=== PATIENT | male | born 1955 | race Caucasian/White ===

== ENCOUNTER 2016-12-29 11:48 | Inpatient (IN) | payer OTHER ==
[~2016-12-29] VITALS: Ht 170.2 cm; Wt 114.3 kg
[2016-12-29] MEDS ORDERED: IV NORMAL SALINE 500ML BAG 500 ML IV ONE ×2 (12:15→12:30)
[2016-12-29 12:40] LABS: BASO # 0.1 x10^3/uL (0.0-0.2); BASO % 1 % (0-3); CALCIUM 8.8 mg/dL (8.5-10.1); CREATININE 1.6 mg/dL (0.7-1.3); EOS % 5 % (0-3); GFR 44.2; HEMATOCRIT 37.6 % (39.0-53.0); HEMOGLOBIN 12.7 g/dL (13.0-17.5); LYMPH # 1.5 x10^3/uL (1.0-4.8); LYMPH % 23 % (24-48); MEAN CORPUSCULAR HEMOGLOBIN 29 pg (25-35); MEAN CORPUSCULAR HGB CONC 34 g/dL (31-37); MEAN CORPUSCULAR VOLUME 86 fL (79-100); MONO % 13 % (0-9); NEUT % 59 % (31-73); PLATELET COUNT 182 x10^3/uL (140-400); POTASSIUM 4.4 mmol/L (3.5-5.1); RED BLOOD COUNT 4.36 x10^6/uL (4.30-5.70); RED CELL DISTRIBUTION WIDTH 14.3 % (11.5-14.5); WHITE BLOOD COUNT 6.9 x10^3/uL (4.0-11.0)
[2016-12-29 12:45] LABS: ALBUMIN 3.6 g/dL (3.4-5.0); DIRECT BILIRUBIN 0.1 mg/dL (0.0-0.2); TOTAL BILIRUBIN 0.4 mg/dL (0.2-1.0); TOTAL PROTEIN 7.7 g/dL (6.4-8.2)
--- NOTE | 2016-12-29 13:11 | PHYS DOC ---
Past Medical History Past Medical History: CAD, GERD, Hypertension, [place] Past Surgical History: Other Additional Past Surgical Histo: cardiac stent times 3, L 1st finger surgically amputated Additional Information: "I haven't smoked since I've been in assisted." Alcohol Use: None Drug Use: None Adult General Chief Complaint Chief Complaint: diarhea HPI HPI 61-year-old male presenting to the emergency department today with abdominal pain with watery stools for the past week. He reports up to 5 stools a day. He denies bloody stools. He feels generally weak and lightheaded when he stands up. His pain as a cramping pain is nonfocal and without alleviating factors. His pain is nonradiating and mild. Review of systems is negative for chest pain shortness of breath fevers chills nausea or vomiting. All other review of systems is negative unless otherwise noted in history of present illness. Review of Systems Review of Systems SEE ABOVE. Current Medications Current Medications Current Medications Medications (Trade) Dose Ordered Sig/Ez Start Time Stop Time Status Last Admin Dose Admin Morphine Sulfate 2 mg PRN Q2HR PRN 12/29/16 14:30 12/30/16 14:29 Ondansetron HCl (Zofran) 4 mg PRN Q8HRS PRN 12/29/16 14:30 12/30/16 14:29 Sodium Chloride (Iv Sodium Chloride 0.9% 500ml Bag) 500 ml @ 500 mls/hr 1X ONCE 12/29/16 12:30 12/29/16 13:29 DC 12/29/16 12:30 500 MLS/HR Allergies Allergies Allergies Coded Allergies Type Severity Reaction Last Updated Verified No Known Drug Allergies 12/29/16 No Physical Exam Physical Exam Constitutional: Well developed, well nourished, no acute distress, non-toxic appearance. HENT: Normocephalic, atraumatic, bilateral external ears normal, oropharynx moist, no oral exudates, nose normal. [] Eyes: PERRLA, EOMI, conjunctiva normal, no discharge. Neck: Normal range of motion, no tenderness, supple, no stridor. [] Cardiovascular:Heart rate regular rhythm, no murmur Lungs & Thorax: Bilateral breath sounds clear to auscultation [] Abdomen: Soft nontender abdomen without rebound tenderness or guarding present. mildly distended. Negative McBurneys point. Negative Moya sign. No ecchymosis present. Mevag-sc-yaoa ultrasound of the abdomen shows approximately 2-1/2-3 cm aorta without any free fluid in the abdomen. Skin: Warm, dry, no erythema, no rash. [] Back: No tenderness, no CVA tenderness. Extremities: No tenderness, no cyanosis, no clubbing, ROM intact, no edema. Neurologic: Alert and oriented X 3, normal motor function, normal sensory function, no focal deficits noted. Psychologic: Affect normal, judgement normal, mood normal. [] Current Patient Data Vital Signs Vital Signs Date Time Temp Pulse Resp B/P Pulse Ox O2 Delivery O2 Flow Rate FiO2 12/29/16 15:02 49 12 123/80 97 Room Air 12/29/16 12:00 97.9 97.9 Lab Values Laboratory Tests Test 12/29/16 12:20 White Blood Count 6.9x10^3/uL (4.0-11.0) Red Blood Count 4.36x10^6/uL (4.30-5.70) Hemoglobin 12.7g/dL (13.0-17.5) L Hematocrit 37.6% (39.0-53.0) L Mean Corpuscular Volume 86fL (79-100) Mean Corpuscular Hemoglobin 29pg (25-35) Mean Corpuscular Hemoglobin Concent 34g/dL (31-37) Red Cell Distribution Width 14.3% (11.5-14.5) Platelet Count 182x10^3/uL (140-400) Neutrophils (%) (Auto) 59% (31-73) Lymphocytes (%) (Auto) 23% (24-48) L Monocytes (%) (Auto) 13% (0-9) H Eosinophils (%) (Auto) 5% (0-3) H Basophils (%) (Auto) 1% (0-3) Neutrophils # (Auto) 4.0x10^3uL (1.8-7.7) Lymphocytes # (Auto) 1.5x10^3/uL (1.0-4.8) Monocytes # (Auto) 0.9x10^3/uL (0.0-1.1) Eosinophils # (Auto) 0.3x10^3/uL (0.0-0.7) Basophils # (Auto) 0.1x10^3/uL (0.0-0.2) Sodium Level 137mmol/L (136-145) Potassium Level 4.4mmol/L (3.5-5.1) Chloride Level 103mmol/L (98-107) Carbon Dioxide Level 27mmol/L (21-32) Anion Gap 7 (6-14) Blood Urea Nitrogen 22mg/dL (8-26) Creatinine 1.6mg/dL (0.7-1.3) H Estimated GFR (Cockcroft-Gault) 44.2 Glucose Level 102mg/dL (70-99) H Lactic Acid Level 1.1mmol/L (0.4-2.0) Calcium Level 8.8mg/dL (8.5-10.1) Total Bilirubin 0.4mg/dL (0.2-1.0) Direct Bilirubin 0.1mg/dL (0.0-0.2) Aspartate Amino Transferase (AST) 28U/L (15-37) Alanine Aminotransferase (ALT) 35U/L (16-63) Alkaline Phosphatase 65U/L (46-116) Troponin I Quantitative < 0.017ng/mL (0.000-0.055) ES-Dkr-Z-Type Natriuretic Peptide 102pg/mL (0-124) Total Protein 7.7g/dL (6.4-8.2) Albumin 3.6g/dL (3.4-5.0) Lipase 106U/L (73-393) Laboratory Tests 12/29/16 12:20 Laboratory Tests 12/29/16 12:20 EKG EKG [] Radiology/Procedures Radiology/Procedures [] Course & Med Decision Making Course & Med Decision Making Pertinent Labs and Imaging studies reviewed. (See chart for details) [] 61-year-old male presenting to the emergency department with low blood pressure and watery diarrhea over the past week. On examination his vital signs showed him being afebrile. Pulse rate within normal limits. Blood pressure low with systolic around 90. Saturating well on room air. IV established in the ER and IV fluids administered. Blood work sent which showed a mild anemia chemistry panel showed mild elevation in creatinine with mild elevation in BUN. Lactic acid within normal limits. Lipase within normal limits. CT the abdomen and pelvis negative for acute pathology. Given the patient's blood pressure initially and continued abdominal pain the patient was admitted to our hospital for further evaluation workup and care. Dragon Disclaimer Dragon Disclaimer This electronic medical record was generated, in whole or in part, using a voice recognition dictation system. Departure Departure Impression: Primary Impression: Abdominal pain Additional Impressions: Hypotension Diarrhea Hypovolemia Disposition: ADMITTED INPATIENT Admitting Physician: Ryan Castellon Condition: STABLE Referrals: UNKNOWN PCP NAME (PCP) Problem Qualifiers LUIS HERNANDEZ MD Dec 29, 2016 13:11
--- NOTE | 2016-12-29 14:25 | EKG ---
[facility] [address] [place] [address] Test Date: 2016-12-29 Test Time: 13:44:58 Pat Name: REID WOO Department: Room: Gender: M Splitter Head: : 1955 Requested By: LUIS HERNANDEZ Order Number: [id number] Reading MD: Yu Goodman Measurements Intervals Mckenna Rate: 50 P: 42 VT: 176 QRS: -116 QRSD: 152 T: 33 QT: 500 QTc: 459 Interpretive Statements SINUS RHYTHM NON SPECIFIC INTRAVENTRICULAR BLOCK QRS(T) CONTOUR ABNORMALITY CONSISTENT WITH LATERAL INFARCT PROBABLY OLD CONSISTENT WITH INFERIOR INFARCT PROBABLY OLD ABNORMAL ECG RI6.01 Compared to ECG 03/10/2016 20:09:42 No significant changes Electronically Signed On 01-02-2017 20:18:33 [employer] by Yu Goodman
[2016-12-29] MEDS ORDERED: ONDANSETRON PF 4 MG/2 ML VIAL. IV PRN ×3 (14:30→18:30)
[2016-12-29] MEDS ORDERED: MORPHINE SULFATE 2 MG/ML DISP.SYRIN. IV PRN (14:30)
--- NOTE | 2016-12-29 14:31 | RAD ---
PQRS Compliance Statement: One or more of the following individualized dose reduction techniques were utilized for this examination: 1. Automated exposure control 2. Adjustment of the mA and/or kV according to patient size 3. Use of iterative reconstruction technique CT of the abdomen and pelvis without contrast, 12/29/2016: History: Abdominal pain Noncontrast scans were obtained as requested. There is mild bibasilar linear scarring and/or atelectasis. Several coronary artery calcifications are noted. There is a small hiatal hernia. The unopacified liver is unremarkable. Small gallstones are present in the gallbladder. There is no evidence of gallbladder wall thickening or pericholecystic edema. No pancreatic abnormality is detected. The spleen is of normal size. The kidneys show no evidence of obstruction or calculi. There is moderate aortoiliac calcific plaquing. There is slight fusiform dilatation of the infrarenal abdominal aorta which measures 3.1 cm in diameter. The right common iliac artery is enlarged measuring 3 cm in width. No abdominal or pelvic adenopathy is present. The bowel loops are not dilated. There is mild mural thickening involving the descending colon. No paracolonic inflammatory process is seen. The appendix is visualized and shows no abnormality. No free fluid or free air is evident in the abdomen or pelvis. There are moderate scattered hypertrophic degenerative changes in the spine. Several old lower rib fractures are noted bilaterally. IMPRESSION: 1. Cholelithiasis. 2. Mild mural thickening involving the descending colon suggesting nonspecific colitis. 3. Minimal fusiform dilatation of the infrarenal abdominal aorta. 4. 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 5. Small hiatal hernia.
[2016-12-29 15:45] LABS: BILIRUBIN,URINE NEGATIVE (NEG); GLUCOSE,URINE NEGATIVE (NEG); NITRITE,URINE NEGATIVE (NEG); PROTEIN,URINE NEGATIVE (NEG-TRACE); UROBILINOGEN,URINE 0.2 mg/dL (0.2 mg/dL)
[2016-12-29 15:47] LABS: BACTERIA,URINE 0 /HPF (0-FEW); RBC,URINE 0 /HPF (0-2); WBC,URINE 0 /HPF (0-4)
--- NOTE | 2016-12-29 15:56 | PDOC1 ---
History and Physical Current Problem List Problem List Problems Medical Problems: (1) Abdominal pain Status: Acute (2) Diarrhea Status: Acute (3) Hypotension Status: Acute (4) Hypovolemia Status: Acute Current Medications Current Medications Current Medications Medications (Trade) Dose Ordered Sig/Ez Start Time Stop Time Status Last Admin Dose Admin Morphine Sulfate 2 mg PRN Q2HR PRN 12/29/16 14:30 12/30/16 14:29 Ondansetron HCl (Zofran) 4 mg PRN Q8HRS PRN 12/29/16 14:30 12/30/16 14:29 Sodium Chloride (Iv Sodium Chloride 0.9% 500ml Bag) 500 ml @ 500 mls/hr 1X ONCE 12/29/16 12:30 12/29/16 13:29 DC 12/29/16 12:30 500 MLS/HR Allergies Allergies Allergies Coded Allergies Type Severity Reaction Last Updated Verified No Known Drug Allergies 12/29/16 No ROS Review of System CONSTITUTIONAL: No fever or chills EYES: No recent changes SKIN: No rash or itching CARDIOVASCULAR: No chest pain, syncope, palpitations, or edema RESPIRATORY: No SOB or cough GASTROINTESTINAL: No nausea, vomiting or abdominal pain NEUROLOGICAL: No headaches or weakness ENDOCRINE: No cold or heat intolerance GENITOURINARY: No urgency or frequency of urination MUSCULOSKELETAL: No back pain or joint pain LYMPHATICS: No enlarged lymph nodes PSYCHIATRIC: No anxiety or depression Physical Exam Physical Exam GEN.: No apparent distress. Alert and oriented. HEENT: Head is normocephalic, atraumatic NECK: Supple. LUNGS: Clear to auscultation. HEART: RRR, S1, S2 present. Peripheral pulses intact ABDOMEN: Soft, nontender. Positive bowel sounds. EXTREMITIES: Without any cyanosis. NEUROLOGIC: Normal speech, normal tone PSYCHIATRIC: Normal affect, normal mood. SKIN: No ulcerations Vitals Vitals Vital Signs Date Time Temp Pulse Resp B/P Pulse Ox O2 Delivery O2 Flow Rate FiO2 12/29/16 15:02 49 12 123/80 97 Room Air 12/29/16 12:00 97.9 97.9 Labs Labs Laboratory Tests Test 12/29/16 12:20 12/29/16 15:28 White Blood Count 6.9x10^3/uL (4.0-11.0) Red Blood Count 4.36x10^6/uL (4.30-5.70) Hemoglobin 12.7g/dL (13.0-17.5) Hematocrit 37.6% (39.0-53.0) Mean Corpuscular Volume 86fL (79-100) Mean Corpuscular Hemoglobin 29pg (25-35) Mean Corpuscular Hemoglobin Concent 34g/dL (31-37) Red Cell Distribution Width 14.3% (11.5-14.5) Platelet Count 182x10^3/uL (140-400) Neutrophils (%) (Auto) 59% (31-73) Lymphocytes (%) (Auto) 23% (24-48) Monocytes (%) (Auto) 13% (0-9) Eosinophils (%) (Auto) 5% (0-3) Basophils (%) (Auto) 1% (0-3) Neutrophils # (Auto) 4.0x10^3uL (1.8-7.7) Lymphocytes # (Auto) 1.5x10^3/uL (1.0-4.8) Monocytes # (Auto) 0.9x10^3/uL (0.0-1.1) Eosinophils # (Auto) 0.3x10^3/uL (0.0-0.7) Basophils # (Auto) 0.1x10^3/uL (0.0-0.2) Sodium Level 137mmol/L (136-145) Potassium Level 4.4mmol/L (3.5-5.1) Chloride Level 103mmol/L (98-107) Carbon Dioxide Level 27mmol/L (21-32) Anion Gap 7 (6-14) Blood Urea Nitrogen 22mg/dL (8-26) Creatinine 1.6mg/dL (0.7-1.3) Estimated GFR (Cockcroft-Gault) 44.2 Glucose Level 102mg/dL (70-99) Lactic Acid Level 1.1mmol/L (0.4-2.0) Calcium Level 8.8mg/dL (8.5-10.1) Total Bilirubin 0.4mg/dL (0.2-1.0) Direct Bilirubin 0.1mg/dL (0.0-0.2) Aspartate Amino Transf (AST/SGOT) 28U/L (15-37) Alanine Aminotransferase (ALT/SGPT) 35U/L (16-63) Alkaline Phosphatase 65U/L (46-116) Troponin I Quantitative < 0.017ng/mL (0.000-0.055) SQ-Xev-G-Type Natriuretic Peptide 102pg/mL (0-124) Total Protein 7.7g/dL (6.4-8.2) Albumin 3.6g/dL (3.4-5.0) Lipase 106U/L (73-393) Urine Collection Type Unknown Urine Color Yellow Urine Clarity Clear Urine pH 6.0 Urine Specific [place] 1.010 Urine Protein Negativemg/dL (NEG-TRACE) Urine Glucose (UA) Negativemg/dL (NEG) Urine Ketones (Stick) Negativemg/dL (NEG) Urine Blood Negative (NEG) Urine Nitrite Negative (NEG) Urine Bilirubin Negative (NEG) Urine Urobilinogen Dipstick 0.2mg/dL (0.2 mg/dL) Urine Leukocyte Esterase Negative (NEG) Urine RBC 0/HPF (0-2) Urine WBC 0/HPF (0-4) Urine Renal Epithelial Cells Occ/LPF Urine Bacteria 0/HPF (0-FEW) Urine Hyaline Casts Moderate/HPF Urine Mucus Slight/LPF Laboratory Tests Test 12/29/16 12:20 12/29/16 15:28 White Blood Count 6.9x10^3/uL (4.0-11.0) Red Blood Count 4.36x10^6/uL (4.30-5.70) Hemoglobin 12.7g/dL (13.0-17.5) Hematocrit 37.6% (39.0-53.0) Mean Corpuscular Volume 86fL (79-100) Mean Corpuscular Hemoglobin 29pg (25-35) Mean Corpuscular Hemoglobin Concent 34g/dL (31-37) Red Cell Distribution Width 14.3% (11.5-14.5) Platelet Count 182x10^3/uL (140-400) Neutrophils (%) (Auto) 59% (31-73) Lymphocytes (%) (Auto) 23% (24-48) Monocytes (%) (Auto) 13% (0-9) Eosinophils (%) (Auto) 5% (0-3) Basophils (%) (Auto) 1% (0-3) Neutrophils # (Auto) 4.0x10^3uL (1.8-7.7) Lymphocytes # (Auto) 1.5x10^3/uL (1.0-4.8) Monocytes # (Auto) 0.9x10^3/uL (0.0-1.1) Eosinophils # (Auto) 0.3x10^3/uL (0.0-0.7) Basophils # (Auto) 0.1x10^3/uL (0.0-0.2) Sodium Level 137mmol/L (136-145) Potassium Level 4.4mmol/L (3.5-5.1) Chloride Level 103mmol/L (98-107) Carbon Dioxide Level 27mmol/L (21-32) Anion Gap 7 (6-14) Blood Urea Nitrogen 22mg/dL (8-26) Creatinine 1.6mg/dL (0.7-1.3) Estimated GFR (Cockcroft-Gault) 44.2 Glucose Level 102mg/dL (70-99) Lactic Acid Level 1.1mmol/L (0.4-2.0) Calcium Level 8.8mg/dL (8.5-10.1) Total Bilirubin 0.4mg/dL (0.2-1.0) Direct Bilirubin 0.1mg/dL (0.0-0.2) Aspartate Amino Transf (AST/SGOT) 28U/L (15-37) Alanine Aminotransferase (ALT/SGPT) 35U/L (16-63) Alkaline Phosphatase 65U/L (46-116) Troponin I Quantitative < 0.017ng/mL (0.000-0.055) BS-Pvq-P-Type Natriuretic Peptide 102pg/mL (0-124) Total Protein 7.7g/dL (6.4-8.2) Albumin 3.6g/dL (3.4-5.0) Lipase 106U/L (73-393) Urine Collection Type Unknown Urine Color Yellow Urine Clarity Clear Urine pH 6.0 Urine Specific [place] 1.010 Urine Protein Negativemg/dL (NEG-TRACE) Urine Glucose (UA) Negativemg/dL (NEG) Urine Ketones (Stick) Negativemg/dL (NEG) Urine Blood Negative (NEG) Urine Nitrite Negative (NEG) Urine Bilirubin Negative (NEG) Urine Urobilinogen Dipstick 0.2mg/dL (0.2 mg/dL) Urine Leukocyte Esterase Negative (NEG) Urine RBC 0/HPF (0-2) Urine WBC 0/HPF (0-4) Urine Renal Epithelial Cells Occ/LPF Urine Bacteria 0/HPF (0-FEW) Urine Hyaline Casts Moderate/HPF Urine Mucus Slight/LPF SPENCER FERRELL MD Dec 29, 2016 15:56
[2016-12-29] MEDS ORDERED: IV NORMAL SALINE 1000ML BAG 1,000 ML IV SCH (16:00)
[2016-12-29 16:31] VITALS: BP 117/72
[2016-12-29] MEDS ORDERED: ALBUTEROL SULFATE 2.5 MG/3 ML NEBU. NEB PRN ×2 (18:30)
[2016-12-29] MEDS ORDERED: hydrALAZINE 20 MG/ML VIAL. IVP PRN (18:30)
[2016-12-29] MEDS ORDERED: ACETAMINOPHEN 325 MG TABLET. PO PRN ×2 (18:30)
[2016-12-29] MEDS ORDERED: HYDROCODONE/APAP 5/325MG TABLET. PO PRN ×2 (18:30)
[2016-12-29] MEDS: IV NORMAL SALINE 1000ML BAG 1,000 ML IV SCH (18:30)
[2016-12-29 19:00] VITALS: BP 117/81
--- NOTE | 2016-12-29 22:44 | HP ---
ADMIT DATE: 12/29/2016 CHIEF COMPLAINT: ____, diarrhea. HISTORY OF PRESENT ILLNESS: A 61-year-old male patient presented to the ER with complaints of abdominal pain and watery diarrhea for nearly 1 week. The patient reported nearly 3-6 bowel movements, watery in nature, present consistent every day. Denies any fevers, chills or vomiting; however, this morning, he was complains of some nausea. Denies any decreased oral intake. Denies any prior surgeries or abdominal complications. He was seen by a physician at the facility and at that time, his blood pressure very low. The patient was in orthostatic hypotension. At the time of his arrival to the ER, his hypotension was severe ____ he is heavy hydration. PAST MEDICAL HISTORY: Coronary artery disease, GERD, hypertension and CO. PAST SURGICAL HISTORY: Coronary stents placed. PERSONAL HISTORY: No smoking, no alcohol, no drug abuse. FAMILY HISTORY: No gastric cancers. REVIEW OF SYSTEMS: CONSTITUTIONAL: No fever or chills. EYES: No recent vision changes. SKIN: No rash or itching. CARDIOVASCULAR: No chest pain, syncope, palpitations or edema. RESPIRATORY: No shortness of breath, cough. GASTROINTESTINAL: Nausea, abdominal pain and diarrhea. NEUROLOGICAL: No headache, paralysis. ENDOCRINOLOGIC: No cold or heat intolerance. GENITOURINARY: No burning with urination, no urgency. MUSCULOSKELETAL: No back pain or joint pain. LYMPHATICS: No enlarged nodes. PSYCHIATRIC: No anxiety or depression. PHYSICAL EXAMINATION: VITAL SIGNS: At the time of my examination, temperature is 97.9, blood pressure is 123/80, pulse 49, respiratory rate 12, pulse ox 97% on room air. CONSTITUTIONAL: Well developed, well nourished, obese. HEENT: Normocephalic, atraumatic. Eyes: PERRLA, EOMI. NECK: No JVD, no thyromegaly. LUNGS: Clear to auscultation. HEART: Regular rate and rhythm; S1, S2 present; pulses intact. ABDOMEN: Soft, nontender, no organomegaly, mildly distended. EXTREMITIES: No cyanosis or edema. NEUROLOGIC: Normal speech and normal tone; alert and oriented. PSYCHIATRIC: Normal affect, normal mood. SKIN: No ulceration. IMAGING STUDIES: 1. CT of the abdomen and pelvis showed cholelithiasis, mild mural thickening involving the descending colon suggesting nonspecific colitis. 2. Minimal fusiform dilatation of infrarenal abdominal aorta. 3. 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 4. Small hiatal hernia. LABORATORY FINDINGS: WBC 6.9, hemoglobin 12.7, platelets 182. Chemistries: Sodium 137, potassium 4.4, chloride is 103, carbon dioxide 27, anion gap is 7, BUN is 22, creatinine is 1.6, glucose 107. Troponin is less than 0.017. Urine protein is negative, nitrites negative, leuko esterase negative. ASSESSMENT AND PLAN: 1. Diarrhea, possibly due to a nonspecific colitis. 2. Acute kidney injury due to dehydration. 3. Hypertension. 4. Coronary artery disease history. 5. Gastroesophageal reflux disease. PLAN: 1. Keep the patient n.p.o., IV hydration at 75 mL per hour. 2. Monitor intake and output. 3. The patient continued to have persistent diarrhea. We will order stool studies. 4. Gastroenterology consultation. 5. Home medications reviewed and counseled. 6. Monitor renal functions in a.m. 7. Pain control with IV morphine. 8. Supportive care. SPENCER FERRELL MD DR: MISTY/timothy JOB#: [id number] / [id number]
--- NOTE | 2016-12-29 22:47 | ACF ---
Admission Forms Criteria ABDOMINAL PAIN Clinical Indications for Admission to Inpatient Care (Place 'X' for any and all applicable criteria): Admission is indicated for ANY ONE of the following(1)(2)(3)(4)(5): [X]I. Inpatient admission required rather than observation care (Also use Abdominal Pain: Observation Care, as appropriate) because of ANY ONE of the following: [ ]a) Severe pain requiring acute inpatient management [X]b) Identification of etiology/finding that requires inpatient care (eg, aortic dissection, free air) [ ]c) Absent bowel sounds with complete ileus(6) [ ]d) Suspected toxic megacolon [ ]e) Severe electrolyte abnormalities requiring inpatient care [ ]f) High fever or infection requiring inpatient admission as indicated by ANY ONE of following(7)(8): [ ] i) Appropriate outpatient or observational care antimicrobial treatment unavailable, not effective, or not feasible [ ] ii) Documented bacteremia [ ] iii) Temperature > 104.9 degrees F (oral) [ ] iv) T >103.1 F (oral) or < 96.8 F(rectal) that does not respond to all emergency treatment measures [ ]g) Signs of intestinal obstruction [B] [ ]h) Hemodynamic instability [ ]i) IV fluid to replace significant ongoing losses (greater than 3 L/m2 per day) (12)(13) [ ]j) Percutaneous or open drainage (eg, abscess, biliary tract ) procedures [ ]k) Parenteral nutrition regimen that must be implemented on inpatient basis [ ]l) Other condition,treatment or monitoring requiring inpatient admission. [ ]II. Peritoneal signs present [ ]III. Surgery needed that cannot be performed on an ambulatory basis. [ ]IV. Evaluation requires patient to not eat or drink for extended period ( eg, more than 24 hours). [ ]V. Contraindications and/or Inappropriate clinical situations for Observational Care in patients with abdominal pain, when ANY ONE of the following is required: [ ]a) Thorough evaluation is required to prevent catastrophic events due to delays in diagnosing (e.g.Mesenteric ischemia) 1,3 [ ]b) Patient with severe pathology or with chronic symptoms unlikely to improve in the ED stay (3) [ ]. General contraindications and/or Inappropriate clinical situations for Observational Care in patients with abdominal pain, when ANY ONE of the following is required: [ ]a) Prediction of prolongation of LOS based on ANY ONE of the following may be considered as a contraindication for observational care 2, 3, 4, 5, 6, 7, 8, 9, 10, 11 [ ]i) Age > 65 yrs. [ ]ii) Patient arriving by ambulance [ ]iii) Patient with high acuity [ ]iv) Patient requiring vital sign monitoring [ ]v) Patient on IV medication [ ]b) Systolic blood pressures 180mmHg 3,12 [ ]c) Patient with altered mental status including delirium and other alteration of consciousness, (3) [ ]d) Patient whose discharge disposition will be to a alf home or rehabilitation home should not be managed in Emergency Department Observation Unit. CMS rule requires 3 days hospital stay before such placement.3,13 [ ]e) Patient with failure to thrive due to broad array of etiologies 3,16,17 [ ]f) Inability to ambulate 3,14 Extended stay beyond goal length of stay may be needed for(2)(3): [ ]a) Persistent abdominal pain with suspected intra-abdominal process [ ]b) Diagnosed condition requiring continued stay (e.g., pancreatitis, complicated diverticulitis) [ ]c) Surgery (e.g., colectomy) The original [facility] content created by [employer] has been revised. The portions of the content which have been revised are identified through the use of italic text or in bold, and [facility] has neither reviewed nor approved the modified material.All other unmodified content is copyright [employer]. Please see references footnoted in the original [facility] edition 2016 Admission Criteria Met?: Yes JODIE LAI Dec 29, 2016 22:47
[2016-12-29 23:00] VITALS: BP 144/87
[2016-12-30 03:00] VITALS: BP 137/85
[2016-12-30 05:02] LABS: BASO # 0.1 x10^3/uL (0.0-0.2); BASO % 1 % (0-3); EOS % 4 % (0-3); HEMATOCRIT 38.6 % (39.0-53.0); HEMOGLOBIN 12.4 g/dL (13.0-17.5); LYMPH # 1.7 x10^3/uL (1.0-4.8); LYMPH % 25 % (24-48); MEAN CORPUSCULAR HEMOGLOBIN 28 pg (25-35); MEAN CORPUSCULAR HGB CONC 32 g/dL (31-37); MEAN CORPUSCULAR VOLUME 89 fL (79-100); MONO % 11 % (0-9); NEUT % 59 % (31-73); PLATELET COUNT 162 x10^3/uL (140-400); RED BLOOD COUNT 4.36 x10^6/uL (4.30-5.70); WHITE BLOOD COUNT 6.8 x10^3/uL (4.0-11.0)
[2016-12-30 05:40] LABS: CALCIUM 8.7 mg/dL (8.5-10.1); CREATININE 1.2 mg/dL (0.7-1.3); GFR 61.6; POTASSIUM 4.4 mmol/L (3.5-5.1)
[2016-12-30] MEDS: IV NORMAL SALINE 1000ML BAG 1,000 ML IV SCH ×2 (06:00→19:51)
[2016-12-30 07:09] VITALS: BP 150/92
--- NOTE | 2016-12-30 09:18 | PDOC2 ---
GI CONSULT Reason For Consult: colitis HPI: HPI: 61 y/o incarcerated male admitted through the ER. Reports 1 week h/o periumbilical and LLQ pain w/ 7-8 watery stools daily. No precipitating events. Symptoms have improved a bit since taking Imodium and Pepto-Bismol. Some associated nausea w/o vomiting. Denies hematochezia/melena. No F/C/S or weight loss. H/o reflux improved but not controlled w/ Prilosec BID. Occasional regurgitation. No previous EGD, father had esophageal cancer. No previous colonoscopy. Wants some water. Labs: WBC 6.8, Hgb 12.4. CT w/ cholelithiasis, hiatal hernia, and mural thickening in the descending colon. Has been NPO. Stool studies ordered, uncollected. PMH: PMH: CAD s/p cardiac stents, HTN, ID, GERD, COPD, TAY, hypothyroidism, anxiety/ depression, previous STDs, Lasik, finger amputation FH: Family History: Cancer (father - esophageal cancer) Social History: Smoke: Quit ALCOHOL: other (used to drink but not heavily) Drugs: Other (in the past) ROS: GEN: Denies fevers, chills, sweats HEENT: Denies blurred vision, sore throat CV: Denies chest pain RESP: Denies shortness of air, cough GI: Per HPI : Denies hematuria, dysuria ENDO: Denies weight changes NEURO: Denies confusion, dizziness MSK: Denies weakness, joint pain/swelling SKIN: Denies jaundice, pruritus VItals: Vitals: Vital Signs Date Time Temp Pulse Resp B/P Pulse Ox O2 Delivery O2 Flow Rate FiO2 12/30/16 07:09 97.9 61 16 150/92 94 Room Air 97.9 Labs: Labs: Laboratory Tests Test 12/29/16 12:20 12/29/16 15:28 12/29/16 17:15 12/30/16 04:33 White Blood Count 6.9x10^3/uL (4.0-11.0) 6.8x10^3/uL (4.0-11.0) Red Blood Count 4.36x10^6/uL (4.30-5.70) 4.36x10^6/uL (4.30-5.70) Hemoglobin 12.7g/dL (13.0-17.5) 12.4g/dL (13.0-17.5) Hematocrit 37.6% (39.0-53.0) 38.6% (39.0-53.0) Mean Corpuscular Volume 86fL (79-100) 89fL (79-100) Mean Corpuscular Hemoglobin 29pg (25-35) 28pg (25-35) Mean Corpuscular Hemoglobin Concent 34g/dL (31-37) 32g/dL (31-37) Red Cell Distribution Width 14.3% (11.5-14.5) 14.0% (11.5-14.5) Platelet Count 182x10^3/uL (140-400) 162x10^3/uL (140-400) Neutrophils (%) (Auto) 59% (31-73) 59% (31-73) Lymphocytes (%) (Auto) 23% (24-48) 25% (24-48) Monocytes (%) (Auto) 13% (0-9) 11% (0-9) Eosinophils (%) (Auto) 5% (0-3) 4% (0-3) Basophils (%) (Auto) 1% (0-3) 1% (0-3) Neutrophils # (Auto) 4.0x10^3uL (1.8-7.7) 4.0x10^3uL (1.8-7.7) Lymphocytes # (Auto) 1.5x10^3/uL (1.0-4.8) 1.7x10^3/uL (1.0-4.8) Monocytes # (Auto) 0.9x10^3/uL (0.0-1.1) 0.7x10^3/uL (0.0-1.1) Eosinophils # (Auto) 0.3x10^3/uL (0.0-0.7) 0.3x10^3/uL (0.0-0.7) Basophils # (Auto) 0.1x10^3/uL (0.0-0.2) 0.1x10^3/uL (0.0-0.2) Sodium Level 137mmol/L (136-145) Potassium Level 4.4mmol/L (3.5-5.1) Chloride Level 103mmol/L (98-107) Carbon Dioxide Level 27mmol/L (21-32) Anion Gap 7 (6-14) Blood Urea Nitrogen 22mg/dL (8-26) Creatinine 1.6mg/dL (0.7-1.3) Estimated GFR (Cockcroft-Gault) 44.2 Glucose Level 102mg/dL (70-99) Lactic Acid Level 1.1mmol/L (0.4-2.0) Calcium Level 8.8mg/dL (8.5-10.1) Total Bilirubin 0.4mg/dL (0.2-1.0) Direct Bilirubin 0.1mg/dL (0.0-0.2) Aspartate Amino Transf (AST/SGOT) 28U/L (15-37) Alanine Aminotransferase (ALT/SGPT) 35U/L (16-63) Alkaline Phosphatase 65U/L (46-116) Troponin I Quantitative < 0.017ng/mL (0.000-0.055) DP-Qqr-P-Type Natriuretic Peptide 102pg/mL (0-124) Total Protein 7.7g/dL (6.4-8.2) Albumin 3.6g/dL (3.4-5.0) Lipase 106U/L (73-393) Urine Collection Type Unknown Urine Color Yellow Urine Clarity Clear Urine pH 6.0 Urine Specific [place] 1.010 Urine Protein Negativemg/dL (NEG-TRACE) Urine Glucose (UA) Negativemg/dL (NEG) Urine Ketones (Stick) Negativemg/dL (NEG) Urine Blood Negative (NEG) Urine Nitrite Negative (NEG) Urine Bilirubin Negative (NEG) Urine Urobilinogen Dipstick 0.2mg/dL (0.2 mg/dL) Urine Leukocyte Esterase Negative (NEG) Urine RBC 0/HPF (0-2) Urine WBC 0/HPF (0-4) Urine Renal Epithelial Cells Occ/LPF Urine Bacteria 0/HPF (0-FEW) Urine Hyaline Casts Moderate/HPF Urine Mucus Slight/LPF Nasal Screen MRSA (PCR) Negative (Negative) Test 12/30/16 04:37 Sodium Level 142mmol/L (136-145) Potassium Level 4.4mmol/L (3.5-5.1) Chloride Level 107mmol/L (98-107) Carbon Dioxide Level 27mmol/L (21-32) Anion Gap 8 (6-14) Blood Urea Nitrogen 17mg/dL (8-26) Creatinine 1.2mg/dL (0.7-1.3) Estimated GFR (Cockcroft-Gault) 61.6 Glucose Level 83mg/dL (70-99) Calcium Level 8.7mg/dL (8.5-10.1) Allergies: Coded Allergies: No Known Allergies (Verified Allergy, Unknown, 12/30/16) I S O L A T I O N *CONTACT* (Verified Adverse Reaction, Unknown, 12/29/16) Medications: Current Medications Medications (Trade) Dose Ordered Sig/Ez Route PRN Reason Start Time Stop Time Status Last Admin Dose Admin Sodium Chloride 500 ml @ 500 mls/hr 1X ONCE IV 12/29/16 12:15 12/29/16 13:14 DC 12/29/16 12:34 Sodium Chloride 500 ml @ 500 mls/hr 1X ONCE IV 12/29/16 12:30 12/29/16 13:29 DC 12/29/16 12:30 Sodium Chloride 1,000 ml @ 75 mls/hr [id number] IV 12/29/16 16:00 12/29/16 20:42 DC 12/29/16 17:17 Sodium Chloride (Iv Sodium Chloride 0.9% 1000ml Bag) 1,000 ml @ 75 mls/hr [id number] IV 12/29/16 18:30 12/30/16 06:00 Imaging: Imaging: CT A/P w/o contrast IMPRESSION: 1. Cholelithiasis. 2. Mild mural thickening involving the descending colon suggesting nonspecific colitis. 3. Minimal fusiform dilatation of the infrarenal abdominal aorta. 4. 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 5. Small hiatal hernia. PE: GEN: NAD HEENT: Atraumatic, PERRL LUNGS: CTAB anteriorly HEART: RRR ABD: NABS, S/ND, LLQ tenderness EXTREMITY: No edema SKIN: No rashes, no jaundice NEURO/PSYCH: A & O 3 OTHER: guards present A/P: A/P: Abdominal pain, diarrhea, nausea, abnormal CT -1 week of watery stools w/ LLQ pain -CT w/ thickened descending colon (additional CT finding per primary) GERD, FH esophageal cancer -improved w/ BID PPI, no previous EGD -occasional regurg CRC screen -no previous colonoscopy -- Await stool studies. Will restart BID PPI. Empiric atbx. Okay for clears. Needs EGD and colonoscopy eventually. ALAV SHAFFER Dec 30, 2016 09:18
--- NOTE | 2016-12-30 09:45 | PDOC ---
PROGRESS NOTES Chief Complaint Chief Complaint diarrhea, abdominal pain 1. colitis, non specific, treated as infectious on admit 2. acute abd pain, LLQ, improving 3. Acute renal failure, vasomotor nephropathy, dehydration, better 4. obesity, BMI 39 5. incarcerated History of Present Illness History of Present Illness feels improved stools have slowed LLQ abd pain persists no n.v would like to try clears Vitals Vitals Vital Signs Date Time Temp Pulse Resp B/P Pulse Ox O2 Delivery O2 Flow Rate FiO2 12/30/16 07:09 97.9 61 16 150/92 94 Room Air 97.9 Physical Exam General: Alert, Oriented X3, Cooperative, No acute distress Heart: Regular rate, No murmurs Lungs: Clear Abdomen: Normal bowel sounds, Soft, Other (tender LLQ, no rebound, no guarding , ) Extremities: No clubbing, No cyanosis Skin: No rashes, No significant lesion Labs LABS Laboratory Tests Test 12/29/16 12:20 12/29/16 15:28 12/29/16 17:15 12/30/16 04:33 White Blood Count 6.9x10^3/uL (4.0-11.0) 6.8x10^3/uL (4.0-11.0) Red Blood Count 4.36x10^6/uL (4.30-5.70) 4.36x10^6/uL (4.30-5.70) Hemoglobin 12.7g/dL (13.0-17.5) 12.4g/dL (13.0-17.5) Hematocrit 37.6% (39.0-53.0) 38.6% (39.0-53.0) Mean Corpuscular Volume 86fL (79-100) 89fL (79-100) Mean Corpuscular Hemoglobin 29pg (25-35) 28pg (25-35) Mean Corpuscular Hemoglobin Concent 34g/dL (31-37) 32g/dL (31-37) Red Cell Distribution Width 14.3% (11.5-14.5) 14.0% (11.5-14.5) Platelet Count 182x10^3/uL (140-400) 162x10^3/uL (140-400) Neutrophils (%) (Auto) 59% (31-73) 59% (31-73) Lymphocytes (%) (Auto) 23% (24-48) 25% (24-48) Monocytes (%) (Auto) 13% (0-9) 11% (0-9) Eosinophils (%) (Auto) 5% (0-3) 4% (0-3) Basophils (%) (Auto) 1% (0-3) 1% (0-3) Neutrophils # (Auto) 4.0x10^3uL (1.8-7.7) 4.0x10^3uL (1.8-7.7) Lymphocytes # (Auto) 1.5x10^3/uL (1.0-4.8) 1.7x10^3/uL (1.0-4.8) Monocytes # (Auto) 0.9x10^3/uL (0.0-1.1) 0.7x10^3/uL (0.0-1.1) Eosinophils # (Auto) 0.3x10^3/uL (0.0-0.7) 0.3x10^3/uL (0.0-0.7) Basophils # (Auto) 0.1x10^3/uL (0.0-0.2) 0.1x10^3/uL (0.0-0.2) Sodium Level 137mmol/L (136-145) Potassium Level 4.4mmol/L (3.5-5.1) Chloride Level 103mmol/L (98-107) Carbon Dioxide Level 27mmol/L (21-32) Anion Gap 7 (6-14) Blood Urea Nitrogen 22mg/dL (8-26) Creatinine 1.6mg/dL (0.7-1.3) Estimated GFR (Cockcroft-Gault) 44.2 Glucose Level 102mg/dL (70-99) Lactic Acid Level 1.1mmol/L (0.4-2.0) Calcium Level 8.8mg/dL (8.5-10.1) Total Bilirubin 0.4mg/dL (0.2-1.0) Direct Bilirubin 0.1mg/dL (0.0-0.2) Aspartate Amino Transf (AST/SGOT) 28U/L (15-37) Alanine Aminotransferase (ALT/SGPT) 35U/L (16-63) Alkaline Phosphatase 65U/L (46-116) Troponin I Quantitative < 0.017ng/mL (0.000-0.055) YJ-[id number]-F-Type Natriuretic Peptide 102pg/mL (0-124) Total Protein 7.7g/dL (6.4-8.2) Albumin 3.6g/dL (3.4-5.0) Lipase 106U/L (73-393) Urine Collection Type Unknown Urine Color Yellow Urine Clarity Clear Urine pH 6.0 Urine Specific [place] 1.010 Urine Protein Negativemg/dL (NEG-TRACE) Urine Glucose (UA) Negativemg/dL (NEG) Urine Ketones (Stick) Negativemg/dL (NEG) Urine Blood Negative (NEG) Urine Nitrite Negative (NEG) Urine Bilirubin Negative (NEG) Urine Urobilinogen Dipstick 0.2mg/dL (0.2 mg/dL) Urine Leukocyte Esterase Negative (NEG) Urine RBC 0/HPF (0-2) Urine WBC 0/HPF (0-4) Urine Renal Epithelial Cells Occ/LPF Urine Bacteria 0/HPF (0-FEW) Urine Hyaline Casts Moderate/HPF Urine Mucus Slight/LPF Nasal Screen MRSA (PCR) Negative (Negative) Test 12/30/16 04:37 Sodium Level 142mmol/L (136-145) Potassium Level 4.4mmol/L (3.5-5.1) Chloride Level 107mmol/L (98-107) Carbon Dioxide Level 27mmol/L (21-32) Anion Gap 8 (6-14) Blood Urea Nitrogen 17mg/dL (8-26) Creatinine 1.2mg/dL (0.7-1.3) Estimated GFR (Cockcroft-Gault) 61.6 Glucose Level 83mg/dL (70-99) Calcium Level 8.7mg/dL (8.5-10.1) Review of Systems Review of Systems no n,v diarrhea last night, none this AM Assessment and Plan Assessmemt and Plan Problems Medical Problems: (1) Abdominal pain Status: Acute (2) Diarrhea Status: Acute (3) Hypotension Status: Acute (4) Hypovolemia Status: Acute Problems: Comment Review of Relevant I have reviewed the following items sergey (where applicable) has been applied. Labs Laboratory Tests Test 12/29/16 12:20 12/29/16 15:28 12/29/16 17:15 12/30/16 04:33 White Blood Count 6.9x10^3/uL (4.0-11.0) 6.8x10^3/uL (4.0-11.0) Red Blood Count 4.36x10^6/uL (4.30-5.70) 4.36x10^6/uL (4.30-5.70) Hemoglobin 12.7g/dL (13.0-17.5) 12.4g/dL (13.0-17.5) Hematocrit 37.6% (39.0-53.0) 38.6% (39.0-53.0) Mean Corpuscular Volume 86fL (79-100) 89fL (79-100) Mean Corpuscular Hemoglobin 29pg (25-35) 28pg (25-35) Mean Corpuscular Hemoglobin Concent 34g/dL (31-37) 32g/dL (31-37) Red Cell Distribution Width 14.3% (11.5-14.5) 14.0% (11.5-14.5) Platelet Count 182x10^3/uL (140-400) 162x10^3/uL (140-400) Neutrophils (%) (Auto) 59% (31-73) 59% (31-73) Lymphocytes (%) (Auto) 23% (24-48) 25% (24-48) Monocytes (%) (Auto) 13% (0-9) 11% (0-9) Eosinophils (%) (Auto) 5% (0-3) 4% (0-3) Basophils (%) (Auto) 1% (0-3) 1% (0-3) Neutrophils # (Auto) 4.0x10^3uL (1.8-7.7) 4.0x10^3uL (1.8-7.7) Lymphocytes # (Auto) 1.5x10^3/uL (1.0-4.8) 1.7x10^3/uL (1.0-4.8) Monocytes # (Auto) 0.9x10^3/uL (0.0-1.1) 0.7x10^3/uL (0.0-1.1) Eosinophils # (Auto) 0.3x10^3/uL (0.0-0.7) 0.3x10^3/uL (0.0-0.7) Basophils # (Auto) 0.1x10^3/uL (0.0-0.2) 0.1x10^3/uL (0.0-0.2) Sodium Level 137mmol/L (136-145) Potassium Level 4.4mmol/L (3.5-5.1) Chloride Level 103mmol/L (98-107) Carbon Dioxide Level 27mmol/L (21-32) Anion Gap 7 (6-14) Blood Urea Nitrogen 22mg/dL (8-26) Creatinine 1.6mg/dL (0.7-1.3) Estimated GFR (Cockcroft-Gault) 44.2 Glucose Level 102mg/dL (70-99) Lactic Acid Level 1.1mmol/L (0.4-2.0) Calcium Level 8.8mg/dL (8.5-10.1) Total Bilirubin 0.4mg/dL (0.2-1.0) Direct Bilirubin 0.1mg/dL (0.0-0.2) Aspartate Amino Transf (AST/SGOT) 28U/L (15-37) Alanine Aminotransferase (ALT/SGPT) 35U/L (16-63) Alkaline Phosphatase 65U/L (46-116) Troponin I Quantitative < 0.017ng/mL (0.000-0.055) CK-Fhe-M-Type Natriuretic Peptide 102pg/mL (0-124) Total Protein 7.7g/dL (6.4-8.2) Albumin 3.6g/dL (3.4-5.0) Lipase 106U/L (73-393) Urine Collection Type Unknown Urine Color Yellow Urine Clarity Clear Urine pH 6.0 Urine Specific [place] 1.010 Urine Protein Negativemg/dL (NEG-TRACE) Urine Glucose (UA) Negativemg/dL (NEG) Urine Ketones (Stick) Negativemg/dL (NEG) Urine Blood Negative (NEG) Urine Nitrite Negative (NEG) Urine Bilirubin Negative (NEG) Urine Urobilinogen Dipstick 0.2mg/dL (0.2 mg/dL) Urine Leukocyte Esterase Negative (NEG) Urine RBC 0/HPF (0-2) Urine WBC 0/HPF (0-4) Urine Renal Epithelial Cells Occ/LPF Urine Bacteria 0/HPF (0-FEW) Urine Hyaline Casts Moderate/HPF Urine Mucus Slight/LPF Nasal Screen MRSA (PCR) Negative (Negative) Test 12/30/16 04:37 Sodium Level 142mmol/L (136-145) Potassium Level 4.4mmol/L (3.5-5.1) Chloride Level 107mmol/L (98-107) Carbon Dioxide Level 27mmol/L (21-32) Anion Gap 8 (6-14) Blood Urea Nitrogen 17mg/dL (8-26) Creatinine 1.2mg/dL (0.7-1.3) Estimated GFR (Cockcroft-Gault) 61.6 Glucose Level 83mg/dL (70-99) Calcium Level 8.7mg/dL (8.5-10.1) Laboratory Tests Test 12/29/16 12:20 12/29/16 15:28 12/29/16 17:15 12/30/16 04:33 White Blood Count 6.9x10^3/uL (4.0-11.0) 6.8x10^3/uL (4.0-11.0) Red Blood Count 4.36x10^6/uL (4.30-5.70) 4.36x10^6/uL (4.30-5.70) Hemoglobin 12.7g/dL (13.0-17.5) 12.4g/dL (13.0-17.5) Hematocrit 37.6% (39.0-53.0) 38.6% (39.0-53.0) Mean Corpuscular Volume 86fL (79-100) 89fL (79-100) Mean Corpuscular Hemoglobin 29pg (25-35) 28pg (25-35) Mean Corpuscular Hemoglobin Concent 34g/dL (31-37) 32g/dL (31-37) Red Cell Distribution Width 14.3% (11.5-14.5) 14.0% (11.5-14.5) Platelet Count 182x10^3/uL (140-400) 162x10^3/uL (140-400) Neutrophils (%) (Auto) 59% (31-73) 59% (31-73) Lymphocytes (%) (Auto) 23% (24-48) 25% (24-48) Monocytes (%) (Auto) 13% (0-9) 11% (0-9) Eosinophils (%) (Auto) 5% (0-3) 4% (0-3) Basophils (%) (Auto) 1% (0-3) 1% (0-3) Neutrophils # (Auto) 4.0x10^3uL (1.8-7.7) 4.0x10^3uL (1.8-7.7) Lymphocytes # (Auto) 1.5x10^3/uL (1.0-4.8) 1.7x10^3/uL (1.0-4.8) Monocytes # (Auto) 0.9x10^3/uL (0.0-1.1) 0.7x10^3/uL (0.0-1.1) Eosinophils # (Auto) 0.3x10^3/uL (0.0-0.7) 0.3x10^3/uL (0.0-0.7) Basophils # (Auto) 0.1x10^3/uL (0.0-0.2) 0.1x10^3/uL (0.0-0.2) Sodium Level 137mmol/L (136-145) Potassium Level 4.4mmol/L (3.5-5.1) Chloride Level 103mmol/L (98-107) Carbon Dioxide Level 27mmol/L (21-32) Anion Gap 7 (6-14) Blood Urea Nitrogen 22mg/dL (8-26) Creatinine 1.6mg/dL (0.7-1.3) Estimated GFR (Cockcroft-Gault) 44.2 Glucose Level 102mg/dL (70-99) Lactic Acid Level 1.1mmol/L (0.4-2.0) Calcium Level 8.8mg/dL (8.5-10.1) Total Bilirubin 0.4mg/dL (0.2-1.0) Direct Bilirubin 0.1mg/dL (0.0-0.2) Aspartate Amino Transf (AST/SGOT) 28U/L (15-37) Alanine Aminotransferase (ALT/SGPT) 35U/L (16-63) Alkaline Phosphatase 65U/L (46-116) Troponin I Quantitative < 0.017ng/mL (0.000-0.055) VE-Txg-B-Type Natriuretic Peptide 102pg/mL (0-124) Total Protein 7.7g/dL (6.4-8.2) Albumin 3.6g/dL (3.4-5.0) Lipase 106U/L (73-393) Urine Collection Type Unknown Urine Color Yellow Urine Clarity Clear Urine pH 6.0 Urine Specific [place] 1.010 Urine Protein Negativemg/dL (NEG-TRACE) Urine Glucose (UA) Negativemg/dL (NEG) Urine Ketones (Stick) Negativemg/dL (NEG) Urine Blood Negative (NEG) Urine Nitrite Negative (NEG) Urine Bilirubin Negative (NEG) Urine Urobilinogen Dipstick 0.2mg/dL (0.2 mg/dL) Urine Leukocyte Esterase Negative (NEG) Urine RBC 0/HPF (0-2) Urine WBC 0/HPF (0-4) Urine Renal Epithelial Cells Occ/LPF Urine Bacteria 0/HPF (0-FEW) Urine Hyaline Casts Moderate/HPF Urine Mucus Slight/LPF Nasal Screen MRSA (PCR) Negative (Negative) Test 12/30/16 04:37 Sodium Level 142mmol/L (136-145) Potassium Level 4.4mmol/L (3.5-5.1) Chloride Level 107mmol/L (98-107) Carbon Dioxide Level 27mmol/L (21-32) Anion Gap 8 (6-14) Blood Urea Nitrogen 17mg/dL (8-26) Creatinine 1.2mg/dL (0.7-1.3) Estimated GFR (Cockcroft-Gault) 61.6 Glucose Level 83mg/dL (70-99) Calcium Level 8.7mg/dL (8.5-10.1) Medications Current Medications Sodium Chloride 500 ml @ 500 mls/hr 1X ONCE IV Last administered on 12:34; Start 12/29/16 at 12:15; Stop 12/29/16 at 13:14; Status DC Sodium Chloride (Iv Sodium Chloride 0.9% 500ml Bag) 500 ml @ 500 mls/hr 1X ONCE IV Last administered on 12/29/16 12:30; Start 12/29/16 at 12:30; Stop at 13:29; Status DC Ondansetron HCl (Zofran) 4 mg PRN Q8HRS PRN IV NAUSEA/VOMITING; Start 12/29/16 at 14:30; Stop 12/30/16 at 09:30; Status DC Morphine Sulfate 2 mg 2 mg PRN Q2HR PRN IV PAIN; Start 12/29/16 at 14:30; Stop 12/30/16 at 14:29 Sodium Chloride (Iv Sodium Chloride 0.9% 1000ml Bag) 1,000 ml @ 75 mls/hr [id number] IV Last administered on 12/29/16 17:17; Start 12/29/16 at 16:00; Stop 12/29/16 at 20:42; Status DC Acetaminophen (Tylenol) 325 mg PRN Q6HRS PRN PO MILD PAIN / TEMP; Start at 18:30 Acetaminophen/ Hydrocodone Bitart (Lortab 5/325) 1 tab PRN Q6HRS PRN PO MODERATE TO SEVERE PAIN; Start 12/29/16 at 18:30 Hydralazine HCl (Apresoline) 10 mg PRN Q4HRS PRN IVP ELEVATED BP, SEE COMMENTS ; Start 12/29/16 at 18:30 Ondansetron HCl (Zofran) 4 mg PRN Q8HRS PRN IV NAUSEA/VOMITING; Start 12/29/16 at 18:30 Albuterol Sulfate 2.5 mg 2.5 mg PRN Q4HRS PRN NEB SHORTNESS OF BREATH; Start at 18:30 Sodium Chloride (Iv Sodium Chloride 0.9% 1000ml Bag) 1,000 ml @ 75 mls/hr [id number] IV Last administered on 12/30/16 06:00; Start 12/29/16 at 18:30 Acetaminophen (Tylenol) 325 mg PRN Q6HRS PRN PO MILD PAIN / TEMP; Start at 18:30; Status UNV Acetaminophen/ Hydrocodone Bitart (Lortab 5/325) 1 tab PRN Q6HRS PRN PO MODERATE TO SEVERE PAIN; Start 12/29/16 at 18:30; Status UNV Hydralazine HCl (Apresoline) 10 mg PRN Q4HRS PRN IVP ELEVATED BP, SEE COMMENTS ; Start 12/29/16 at 18:30; Status UNV Ondansetron HCl (Zofran) 4 mg PRN Q8HRS PRN IV NAUSEA/VOMITING; Start 12/29/16 at 18:30; Status UNV Albuterol Sulfate 2.5 mg 2.5 mg PRN Q4HRS PRN NEB SHORTNESS OF BREATH; Start at 18:30; Status UNV Metronidazole (FLAGYL 500Mmg PREMIX) 100 ml @ 100 mls/hr Q12HR IV ; Start 12/30 at 10:00 Pantoprazole Sodium (Protonix) 40 mg BIDAC PO ; Start 12/30/16 at 16:30; Status UNV Vitals/I & O Vital Sign - Last 24 Hours 12/29/16 12/29/16 12/29/16 12/29/16 12:00 12:18 12:33 12:48 Temp 97.9 97.9 Pulse 57 52 54 52 Resp 18 13 14 14 B/P 87/61 105/67 99/69 118/61 Pulse Ox 97 96 96 96 O2 Delivery Room Air Room Air Room Air Room Air 12/29/16 12/29/16 12/29/16 12/29/16 13:03 13:48 14:32 15:02 Pulse 53 50 49 49 Resp 12 12 12 12 B/P 121/65 128/70 126/84 123/80 Pulse Ox 97 97 97 97 O2 Delivery Room Air Room Air Room Air Room Air 12/29/16 12/29/16 12/29/16 12/29/16 16:31 16:31 19:00 20:33 Temp 97.8 97.8 98.0 97.8 97.8 98.0 Pulse 53 53 85 Resp 18 18 18 B/P 117/72 117/72 117/81 Pulse Ox 96 96 96 O2 Delivery Room Air Room Air Room Air Room Air 12/29/16 12/30/16 12/30/16 23:00 03:00 07:09 Temp 98.3 98.5 97.9 98.3 98.5 97.9 Pulse 63 78 61 Resp 18 18 16 B/P 144/87 137/85 150/92 Pulse Ox 94 95 94 O2 Delivery Room Air Room Air Room Air Intake and Output 12/29/16 12/29/16 12/30/16 15:00 23:00 07:00 Intake Total 1000 ml 0 ml 874.6 ml Output Total 575 ml Balance 1000 ml -575 ml 874.6 ml ELIZA FRAIRE MD Dec 30, 2016 09:45
[2016-12-30] MEDS ORDERED: METRONIDAZOLE 500mg PREMIX 100 ML IV SCH ×2 (10:00)
[2016-12-30] MEDS: PANTOPRAZOLE 40 MG TABLET. PO SCH ×2 (10:08→18:07)
[2016-12-30 11:03] VITALS: BP 164/92
[2016-12-30 15:00] VITALS: BP 152/98
[2016-12-30] MEDS ORDERED: METRONIDAZOLE 500 MG TABLET. PO SCH (16:00)
[2016-12-30 19:00] VITALS: BP 159/107
[2016-12-30 23:00] VITALS: BP 164/92
[2016-12-31] MEDS: METRONIDAZOLE 500 MG TABLET. PO SCH ×2 (01:43→11:10)
[2016-12-31 02:40] VITALS: BP 200/102
[2016-12-31] MEDS: hydrALAZINE 20 MG/ML VIAL. IVP PRN ×2 (02:40→08:26)
[2016-12-31 03:17] VITALS: BP 174/95
[2016-12-31 05:42] LABS: BASO # 0.1 x10^3/uL (0.0-0.2); BASO % 1 % (0-3); EOS % 5 % (0-3); HEMATOCRIT 38.8 % (39.0-53.0); HEMOGLOBIN 13.1 g/dL (13.0-17.5); LYMPH # 1.4 x10^3/uL (1.0-4.8); LYMPH % 25 % (24-48); MEAN CORPUSCULAR HEMOGLOBIN 29 pg (25-35); MEAN CORPUSCULAR HGB CONC 34 g/dL (31-37); MEAN CORPUSCULAR VOLUME 86 fL (79-100); MONO % 12 % (0-9); NEUT % 58 % (31-73); PLATELET COUNT 176 x10^3/uL (140-400); RED BLOOD COUNT 4.51 x10^6/uL (4.30-5.70); WHITE BLOOD COUNT 5.8 x10^3/uL (4.0-11.0)
[2016-12-31 06:38] LABS: CALCIUM 8.5 mg/dL (8.5-10.1); CREATININE 1.1 mg/dL (0.7-1.3); GFR 68.1; POTASSIUM 3.9 mmol/L (3.5-5.1)
[2016-12-31 07:00] VITALS: BP 174/95
[2016-12-31] MEDS ORDERED: LORA10TA68 PO (07:00)
[2016-12-31] MEDS ORDERED: ATOR40TA59 PO (07:00)
[2016-12-31] MEDS ORDERED: CARV25TA2 PO (07:00)
[2016-12-31] MEDS ORDERED: CITA20TA9 PO (07:00)
[2016-12-31] MEDS ORDERED: BISM262O17 PO (07:00)
[2016-12-31] MEDS ORDERED: CYCL10TA2 PO (07:00)
[2016-12-31] MEDS ORDERED: ASPI325T4 PO (07:00)
[2016-12-31] MEDS ORDERED: LEVO50TA5 PO (07:47)
[2016-12-31] MEDS ORDERED: OMEP20TA PO (07:47)
[2016-12-31] MEDS ORDERED: ISOS60TA2 PO (07:47)
[2016-12-31] MEDS ORDERED: LISI40TA PO (07:47)
[2016-12-31] MEDS ORDERED: SIME80TA14 PO (07:47)
[2016-12-31] MEDS ORDERED: HYDR25TA9 PO (07:47)
[2016-12-31] MEDS ORDERED: VENTOLIN HFA18 GM INH (07:51)
[2016-12-31] MEDS ORDERED: SPIR25TA3 PO (07:51)
[2016-12-31] MEDS ORDERED: TRAZ50TA15 PO (07:51)
[2016-12-31] MEDS: PANTOPRAZOLE 40 MG TABLET. PO SCH (08:25)
[2016-12-31] MEDS ORDERED: NON FORMULARY ITEM (Albuterol Sulfate (Ventolin Hfa Inhaler) 2 PUFF) INH PRN (09:00)
[2016-12-31] MEDS ORDERED: SIMETHICONE 80 MG TAB.CHEW PO PRN (09:00)
[2016-12-31] MEDS ORDERED: BISMUTH SUBSALICYLATE 262 MG/15 ML ORAL.SUSP 236ML BOTTLE. PO PRN (09:00)
[2016-12-31] MEDS ORDERED: NON FORMULARY ITEM (Omeprazole 1 TAB) PO PRN (09:00)
[2016-12-31] MEDS ORDERED: CYCLOBENZAPRINE 10 MG TABLET. PO PRN (09:00)
[2016-12-31] MEDS ORDERED: ALBUTEROL SULFATE 2.5 MG/3 ML NEBU. NEB PRN (09:15)
[2016-12-31] MEDS ORDERED: SPIRONOLACTONE 25 MG TABLET PO SCH (09:30)
[2016-12-31] MEDS ORDERED: CARVEDILOL 12.5 MG TABLET PO SCH (09:30)
[2016-12-31] MEDS ORDERED: LISINOPRIL 40 MG TABLET. PO SCH (09:30)
[2016-12-31] MEDS ORDERED: ISOSORBIDE MONONITRATE ER 60 MG TAB.ER.24H PO SCH (09:30)
[2016-12-31] MEDS ORDERED: HYDROCHLOROTHIAZIDE 25 MG TABLET PO SCH (09:30)
[2016-12-31] MEDS ORDERED: ASPIRIN ENTERIC COATED 81 MG TABLET.DR. PO SCH (09:30)
[2016-12-31] MEDS ORDERED: CETIRIZINE HCL 10 MG TABLET PO SCH (09:30)
[2016-12-31] MEDS ORDERED: ASPIRIN 325 MG TABLET PO SCH (09:30)
--- NOTE | 2016-12-31 09:39 | PDOC ---
Subjective: Subjective: Per pt - feeling better w/ less pain. Passing gas, no stool. No n/v. Doing okay w/ clears, would like to eat more. Objective: Objective: Per RN - tolerating clears w/o vomiting. No stools. Guards asking about DC. Vital Signs: Vital Signs Date Time Temp Pulse Resp B/P Pulse Ox O2 Delivery O2 Flow Rate FiO2 12/31/16 08:26 59 174/95 12/31/16 07:00 97.7 18 95 Room Air 97.7 Labs: Laboratory Tests Test 12/31/16 04:40 White Blood Count 5.8x10^3/uL Red Blood Count 4.51x10^6/uL Hemoglobin 13.1g/dL Hematocrit 38.8% Mean Corpuscular Volume 86fL Mean Corpuscular Hemoglobin 29pg Mean Corpuscular Hemoglobin Concent 34g/dL Red Cell Distribution Width 14.0% Platelet Count 176x10^3/uL Neutrophils (%) (Auto) 58% Lymphocytes (%) (Auto) 25% Monocytes (%) (Auto) 12% Eosinophils (%) (Auto) 5% Basophils (%) (Auto) 1% Neutrophils # (Auto) 3.3x10^3uL Lymphocytes # (Auto) 1.4x10^3/uL Monocytes # (Auto) 0.7x10^3/uL Eosinophils # (Auto) 0.3x10^3/uL Basophils # (Auto) 0.1x10^3/uL Sodium Level 142mmol/L Potassium Level 3.9mmol/L Chloride Level 106mmol/L Carbon Dioxide Level 25mmol/L Anion Gap 11 Blood Urea Nitrogen 14mg/dL Creatinine 1.1mg/dL Estimated GFR (Cockcroft-Gault) 68.1 Glucose Level 88mg/dL Calcium Level 8.5mg/dL PE: GEN: NAD LUNGS: clear anteriorly HEART: RRR ABD: obese, quiet BS, less LLQ tenderness NEURO/PSYCH: A & O 3 A/P: Abdominal pain, diarrhea, nausea, abnormal CT - better -1 week of watery stools w/ LLQ pain -CT w/ thickened descending colon -no previous colonoscopy -started on IV Flagyl yesterday which has been changed to PO -stool studies uncollected GERD, occasional regurg, FH esophageal cancer -improved w/ BID PPI, no previous EGD -- Improving. ADAT, look toward DC. Outpt EGD and colonoscopy recommended. ALVA SHAFFER Dec 31, 2016 09:39
--- NOTE | 2016-12-31 09:48 | PDOC ---
PROGRESS NOTES Chief Complaint Chief Complaint 1. Colitis- DDX: ischemic vs. infectious, work-up in progress 2. Diarrhea- improved 3. Abdominal Pain 4. Vasomotor Nephropathy secondary to dehydration 5. Obesity, BMI 39 6. Incarcerated History of Present Illness History of Present Illness The pt was resting comfortably in bed with Officer at bedside and at door. The pt states that he is still having the LLQ abdominal pain but the pain has improved with the pain medications. He denies any new watery stools over night. Vitals Vitals Vital Signs Date Time Temp Pulse Resp B/P Pulse Ox O2 Delivery O2 Flow Rate FiO2 12/31/16 08:26 59 174/95 12/31/16 07:00 97.7 18 95 Room Air 97.7 Physical Exam General: Alert, Oriented X3, Cooperative, No acute distress Heart: Regular rate, Normal S1, Normal S2, No murmurs Lungs: Clear, Other (no wheezes or crackles) Abdomen: Normal bowel sounds, Soft, Other (tenderness in LLQ) Extremities: No clubbing, No cyanosis Skin: No rashes, No significant lesion Labs LABS Laboratory Tests Test 12/31/16 04:40 White Blood Count 5.8x10^3/uL (4.0-11.0) Red Blood Count 4.51x10^6/uL (4.30-5.70) Hemoglobin 13.1g/dL (13.0-17.5) Hematocrit 38.8% (39.0-53.0) Mean Corpuscular Volume 86fL (79-100) Mean Corpuscular Hemoglobin 29pg (25-35) Mean Corpuscular Hemoglobin Concent 34g/dL (31-37) Red Cell Distribution Width 14.0% (11.5-14.5) Platelet Count 176x10^3/uL (140-400) Neutrophils (%) (Auto) 58% (31-73) Lymphocytes (%) (Auto) 25% (24-48) Monocytes (%) (Auto) 12% (0-9) Eosinophils (%) (Auto) 5% (0-3) Basophils (%) (Auto) 1% (0-3) Neutrophils # (Auto) 3.3x10^3uL (1.8-7.7) Lymphocytes # (Auto) 1.4x10^3/uL (1.0-4.8) Monocytes # (Auto) 0.7x10^3/uL (0.0-1.1) Eosinophils # (Auto) 0.3x10^3/uL (0.0-0.7) Basophils # (Auto) 0.1x10^3/uL (0.0-0.2) Sodium Level 142mmol/L (136-145) Potassium Level 3.9mmol/L (3.5-5.1) Chloride Level 106mmol/L (98-107) Carbon Dioxide Level 25mmol/L (21-32) Anion Gap 11 (6-14) Blood Urea Nitrogen 14mg/dL (8-26) Creatinine 1.1mg/dL (0.7-1.3) Estimated GFR (Cockcroft-Gault) 68.1 Glucose Level 88mg/dL (70-99) Calcium Level 8.5mg/dL (8.5-10.1) Review of Systems Review of Systems Complaining of Abdominal Pain Complaining of Hunger- Still on Clear Diet All other ROS negative Assessment and Plan Assessmemt and Plan Problems Medical Problems: (1) Abdominal pain Status: Acute (2) Diarrhea Status: Acute (3) Hypotension Status: Acute (4) Hypovolemia Status: Acute 1. Colitis- DDX: ischemic vs. infectious, work-up in progress 2. Diarrhea- improved 3. Abdominal Pain 4. Vasomotor Nephropathy secondary to dehydration 5. Obesity, BMI 39 6. Incarcerated Plan: - Continue Care per floor protocol - Consulted GI- appreciate Recommendations - Pt needs O/P EGD and Colonoscopy to further evaluate findings from CT - Continuing Protonix BID as recommended - Diarrhea improved today - Will start Norvasc 10 mg Daily PO for HTN - Continue the Metronidazole abx Treatment at this time - Continue Regular home medications - Clear Diet at this time- advanced if ok with GI - Lortab for pain as needed Problems: Comment Review of Relevant I have reviewed the following items sergey (where applicable) has been applied. Labs Laboratory Tests Test 12/29/16 12:20 12/29/16 15:28 12/29/16 17:15 12/30/16 04:33 White Blood Count 6.9x10^3/uL (4.0-11.0) 6.8x10^3/uL (4.0-11.0) Red Blood Count 4.36x10^6/uL (4.30-5.70) 4.36x10^6/uL (4.30-5.70) Hemoglobin 12.7g/dL (13.0-17.5) 12.4g/dL (13.0-17.5) Hematocrit 37.6% (39.0-53.0) 38.6% (39.0-53.0) Mean Corpuscular Volume 86fL (79-100) 89fL (79-100) Mean Corpuscular Hemoglobin 29pg (25-35) 28pg (25-35) Mean Corpuscular Hemoglobin Concent 34g/dL (31-37) 32g/dL (31-37) Red Cell Distribution Width 14.3% (11.5-14.5) 14.0% (11.5-14.5) Platelet Count 182x10^3/uL (140-400) 162x10^3/uL (140-400) Neutrophils (%) (Auto) 59% (31-73) 59% (31-73) Lymphocytes (%) (Auto) 23% (24-48) 25% (24-48) Monocytes (%) (Auto) 13% (0-9) 11% (0-9) Eosinophils (%) (Auto) 5% (0-3) 4% (0-3) Basophils (%) (Auto) 1% (0-3) 1% (0-3) Neutrophils # (Auto) 4.0x10^3uL (1.8-7.7) 4.0x10^3uL (1.8-7.7) Lymphocytes # (Auto) 1.5x10^3/uL (1.0-4.8) 1.7x10^3/uL (1.0-4.8) Monocytes # (Auto) 0.9x10^3/uL (0.0-1.1) 0.7x10^3/uL (0.0-1.1) Eosinophils # (Auto) 0.3x10^3/uL (0.0-0.7) 0.3x10^3/uL (0.0-0.7) Basophils # (Auto) 0.1x10^3/uL (0.0-0.2) 0.1x10^3/uL (0.0-0.2) Sodium Level 137mmol/L (136-145) Potassium Level 4.4mmol/L (3.5-5.1) Chloride Level 103mmol/L (98-107) Carbon Dioxide Level 27mmol/L (21-32) Anion Gap 7 (6-14) Blood Urea Nitrogen 22mg/dL (8-26) Creatinine 1.6mg/dL (0.7-1.3) Estimated GFR (Cockcroft-Gault) 44.2 Glucose Level 102mg/dL (70-99) Lactic Acid Level 1.1mmol/L (0.4-2.0) Calcium Level 8.8mg/dL (8.5-10.1) Total Bilirubin 0.4mg/dL (0.2-1.0) Direct Bilirubin 0.1mg/dL (0.0-0.2) Aspartate Amino Transf (AST/SGOT) 28U/L (15-37) Alanine Aminotransferase (ALT/SGPT) 35U/L (16-63) Alkaline Phosphatase 65U/L (46-116) Troponin I Quantitative < 0.017ng/mL (0.000-0.055) [id number]-Type Natriuretic Peptide 102pg/mL (0-124) Total Protein 7.7g/dL (6.4-8.2) Albumin 3.6g/dL (3.4-5.0) Lipase 106U/L (73-393) Urine Collection Type Unknown Urine Color Yellow Urine Clarity Clear Urine pH 6.0 Urine Specific Metaline 1.010 Urine Protein Negativemg/dL (NEG-TRACE) Urine Glucose (UA) Negativemg/dL (NEG) Urine Ketones (Stick) Negativemg/dL (NEG) Urine Blood Negative (NEG) Urine Nitrite Negative (NEG) Urine Bilirubin Negative (NEG) Urine Urobilinogen Dipstick 0.2mg/dL (0.2 mg/dL) Urine Leukocyte Esterase Negative (NEG) Urine RBC 0/HPF (0-2) Urine WBC 0/HPF (0-4) Urine Renal Epithelial Cells Occ/LPF Urine Bacteria 0/HPF (0-FEW) Urine Hyaline Casts Moderate/HPF Urine Mucus Slight/LPF Nasal Screen MRSA (PCR) Negative (Negative) Test 12/30/16 04:37 12/31/16 04:40 Sodium Level 142mmol/L (136-145) 142mmol/L (136-145) Potassium Level 4.4mmol/L (3.5-5.1) 3.9mmol/L (3.5-5.1) Chloride Level 107mmol/L (98-107) 106mmol/L (98-107) Carbon Dioxide Level 27mmol/L (21-32) 25mmol/L (21-32) Anion Gap 8 (6-14) 11 (6-14) Blood Urea Nitrogen 17mg/dL (8-26) 14mg/dL (8-26) Creatinine 1.2mg/dL (0.7-1.3) 1.1mg/dL (0.7-1.3) Estimated GFR (Cockcroft-Gault) 61.6 68.1 Glucose Level 83mg/dL (70-99) 88mg/dL (70-99) Calcium Level 8.7mg/dL (8.5-10.1) 8.5mg/dL (8.5-10.1) White Blood Count 5.8x10^3/uL (4.0-11.0) Red Blood Count 4.51x10^6/uL (4.30-5.70) Hemoglobin 13.1g/dL (13.0-17.5) Hematocrit 38.8% (39.0-53.0) Mean Corpuscular Volume 86fL (79-100) Mean Corpuscular Hemoglobin 29pg (25-35) Mean Corpuscular Hemoglobin Concent 34g/dL (31-37) Red Cell Distribution Width 14.0% (11.5-14.5) Platelet Count 176x10^3/uL (140-400) Neutrophils (%) (Auto) 58% (31-73) Lymphocytes (%) (Auto) 25% (24-48) Monocytes (%) (Auto) 12% (0-9) Eosinophils (%) (Auto) 5% (0-3) Basophils (%) (Auto) 1% (0-3) Neutrophils # (Auto) 3.3x10^3uL (1.8-7.7) Lymphocytes # (Auto) 1.4x10^3/uL (1.0-4.8) Monocytes # (Auto) 0.7x10^3/uL (0.0-1.1) Eosinophils # (Auto) 0.3x10^3/uL (0.0-0.7) Basophils # (Auto) 0.1x10^3/uL (0.0-0.2) Laboratory Tests Test 12/31/16 04:40 White Blood Count 5.8x10^3/uL (4.0-11.0) Red Blood Count 4.51x10^6/uL (4.30-5.70) Hemoglobin 13.1g/dL (13.0-17.5) Hematocrit 38.8% (39.0-53.0) Mean Corpuscular Volume 86fL (79-100) Mean Corpuscular Hemoglobin 29pg (25-35) Mean Corpuscular Hemoglobin Concent 34g/dL (31-37) Red Cell Distribution Width 14.0% (11.5-14.5) Platelet Count 176x10^3/uL (140-400) Neutrophils (%) (Auto) 58% (31-73) Lymphocytes (%) (Auto) 25% (24-48) Monocytes (%) (Auto) 12% (0-9) Eosinophils (%) (Auto) 5% (0-3) Basophils (%) (Auto) 1% (0-3) Neutrophils # (Auto) 3.3x10^3uL (1.8-7.7) Lymphocytes # (Auto) 1.4x10^3/uL (1.0-4.8) Monocytes # (Auto) 0.7x10^3/uL (0.0-1.1) Eosinophils # (Auto) 0.3x10^3/uL (0.0-0.7) Basophils # (Auto) 0.1x10^3/uL (0.0-0.2) Sodium Level 142mmol/L (136-145) Potassium Level 3.9mmol/L (3.5-5.1) Chloride Level 106mmol/L (98-107) Carbon Dioxide Level 25mmol/L (21-32) Anion Gap 11 (6-14) Blood Urea Nitrogen 14mg/dL (8-26) Creatinine 1.1mg/dL (0.7-1.3) Estimated GFR (Cockcroft-Gault) 68.1 Glucose Level 88mg/dL (70-99) Calcium Level 8.5mg/dL (8.5-10.1) Medications Current Medications Sodium Chloride 500 ml @ 500 mls/hr 1X ONCE IV Last administered on 12:34; Start 12/29/16 at 12:15; Stop 12/29/16 at 13:14; Status DC Sodium Chloride (Iv Sodium Chloride 0.9% 500ml Bag) 500 ml @ 500 mls/hr 1X ONCE IV Last administered on 12/29/16 12:30; Start 12/29/16 at 12:30; Stop at 13:29; Status DC Ondansetron HCl (Zofran) 4 mg PRN Q8HRS PRN IV NAUSEA/VOMITING; Start 12/29/16 at 14:30; Stop 12/30/16 at 09:30; Status DC Morphine Sulfate 2 mg 2 mg PRN Q2HR PRN IV PAIN; Start 12/29/16 at 14:30; Stop 12/30/16 at 14:29; Status DC Sodium Chloride (Iv Sodium Chloride 0.9% 1000ml Bag) 1,000 ml @ 75 mls/hr [id number] IV Last administered on 12/29/16 17:17; Start 12/29/16 at 16:00; Stop 12/29/16 at 20:42; Status DC Acetaminophen (Tylenol) 325 mg PRN Q6HRS PRN PO MILD PAIN / TEMP Last administered on 12/30/16 20:33; Start 12/29/16 at 18:30 Acetaminophen/ Hydrocodone Bitart (Lortab 5/325) 1 tab PRN Q6HRS PRN PO MODERATE TO SEVERE PAIN; Start 12/29/16 at 18:30 Hydralazine HCl (Apresoline) 10 mg PRN Q4HRS PRN IVP ELEVATED BP, SEE COMMENTS Last administered on 12/31/16 08:26; Start 12/29/16 at 18:30 Ondansetron HCl (Zofran) 4 mg PRN Q8HRS PRN IV NAUSEA/VOMITING; Start 12/29/16 at 18:30 Albuterol Sulfate 2.5 mg 2.5 mg PRN Q4HRS PRN NEB SHORTNESS OF BREATH; Start at 18:30; Stop 12/31/16 at 09:09; Status DC Sodium Chloride (Iv Sodium Chloride 0.9% 1000ml Bag) 1,000 ml @ 75 mls/hr [id number] IV Last administered on 12/30/16 19:51; Start 12/29/16 at 18:30 Acetaminophen (Tylenol) 325 mg PRN Q6HRS PRN PO MILD PAIN / TEMP; Start at 18:30; Status UNV Acetaminophen/ Hydrocodone Bitart (Lortab 5/325) 1 tab PRN Q6HRS PRN PO MODERATE TO SEVERE PAIN; Start 12/29/16 at 18:30; Status UNV Hydralazine HCl (Apresoline) 10 mg PRN Q4HRS PRN IVP ELEVATED BP, SEE COMMENTS ; Start 12/29/16 at 18:30; Status UNV Ondansetron HCl (Zofran) 4 mg PRN Q8HRS PRN IV NAUSEA/VOMITING; Start 12/29/16 at 18:30; Status UNV Albuterol Sulfate 2.5 mg 2.5 mg PRN Q4HRS PRN NEB SHORTNESS OF BREATH; Start at 18:30; Status UNV Metronidazole (FLAGYL 500Mmg PREMIX) 100 ml @ 100 mls/hr Q12HR IV ; Start 12/30 at 10:00; Stop 12/30/16 at 10:00; Status DC Pantoprazole Sodium 40 mg 40 mg BIDAC PO Last administered on 12/31/16 08:25; Start 12/30/16 at 10:00 Metronidazole (FLAGYL 500Mmg PREMIX) 100 ml @ 100 mls/hr Q12HR IV Last administered on 12/30/16 10:09; Start 12/30/16 at 10:00; Stop 12/30/16 at 11:00 ; Status DC Metronidazole (Flagyl) 500 mg Q8HRS PO Last administered on 12/30/16 18:07; Start 12/30/16 at 16:00; Stop 12/30/16 at 20:32; Status DC Metronidazole (Flagyl) 500 mg Q8H PO Last administered on 2/23/17at 01:43; Start 12/31/16 at 02:00 Aspirin (Michael Aspirin) 81 mg DAILYWBKFT PO ; Start 12/31/16 at 09:30; Stop at 09:30; Status DC Atorvastatin Calcium (Lipitor) 80 mg QHS PO ; Start 12/31/16 at 21:00 Bismuth Subsalicylate (Pepto-Bismol) 262 mg PRN BID PRN PO HEARTBURN / GAS; Start 12/31/16 at 09:00 Citalopram Hydrobromide (Celexa) 20 mg QHS PO ; Start 12/31/16 at 21:00 Cyclobenzaprine HCl (Flexeril) 10 mg PRN Q12HR PRN PO MUSCLE SPASMS; Start at 09:00 Hydrochlorothiazide (Hydrodiuril) 25 mg DAILY PO ; Start 12/31/16 at 09:30 Isosorbide Mononitrate (Imdur) 60 mg DAILY PO ; Start 12/31/16 at 09:30 Levothyroxine Sodium (Synthroid) 50 mcg DAILY07 PO ; Start 01/01/17 at 07:00 Lisinopril (Prinivil) 40 mg DAILY PO ; Start 12/31/16 at 09:30 Simethicone (Gas-X) 80 mg PRN BID PRN PO HEARTBURN / GAS; Start 12/31/16 at 09: 00 Spironolactone (Aldactone) 25 mg DAILY PO ; Start 12/31/16 at 09:30 Trazodone HCl (Desyrel) 50 mg QHS PO ; Start 12/31/16 at 21:00 Non-Formulary Medication 2 puff PRN Q4-6HRS PRN INH COUGH; Start 12/31/16 at 09: 00; Status UNV Carvedilol (Coreg) 25 mg BIDWMEALS PO ; Start 12/31/16 at 09:30 Cetirizine HCl (Zyrtec) 10 mg DAILY PO ; Start 12/31/16 at 09:30 Non-Formulary Medication 1 tab PRN Q12HR PRN PO HEARTBURN / GAS; Start at 09:00; Status UNV Aspirin (Ecotrin) 81 mg DAILYWBKFT PO ; Start 2/23/17 at 09:30 Albuterol Sulfate (Ventolin Neb Soln) 2.5 mg PRN Q4HRS PRN NEB SHORTNESS OF BREATH; Start 12/31/16 at 09:15 Active Scripts Active Reported Ventolin Hfa Inhaler (Albuterol Sulfate) 18 Gm Hfa.aer.ad 2 Puff INH PRN Q4- 6HRS PRN Trazodone Hcl 50 Mg Tablet 1 Tab PO QHS Spironolactone 25 Mg Tablet 1 Tab PO DAILY Simethicone 80 Mg Tab.chew 80 Mg PO PRN BID PRN Omeprazole 20 Mg Tablet.dr 1 Tab PO PRN Q12HR PRN Lisinopril 40 Mg Tablet 1 Tab PO DAILY Levothyroxine Sodium 50 Mcg Tablet 1 Tab PO DAILY Isosorbide Mononitrate Er (Isosorbide Mononitrate) 60 Mg Tab.er.24h 1 Tab PO DAILY Hydrochlorothiazide Tablet (Hydrochlorothiazide) 25 Mg Tablet 1 Tab PO DAILY Cyclobenzaprine Hcl 10 Mg Tablet 1 Tab PO PRN Q12HR PRN Claritin (Loratadine) 10 Mg Tablet 1 Tab PO DAILY Celexa (Citalopram Hydrobromide) 20 Mg Tablet 1 Tab PO QHS Carvedilol 25 Mg Tablet 1 Tab PO BID Bismatrol (Bismuth Subsalicylate) 262 Mg/15 Ml Oral.susp 262 Mg PO PRN BID PRN Atorvastatin Calcium 40 Mg Tablet 2 Tab PO DAILY Aspirin 325 Mg Tablet 1 Tab PO DAILY Vitals/I & O Vital Sign - Last 24 Hours 12/30/16 12/30/16 12/30/16 12/30/16 11:03 15:00 19:00 19:45 Temp 97.9 97.9 99.9 97.9 97.9 99.9 Pulse 63 73 72 Resp 16 14 18 B/P 164/92 152/98 159/107 Pulse Ox 92 96 95 O2 Delivery Room Air Room Air Room Air Room Air 12/30/16 12/31/16 12/31/16 12/31/16 23:00 02:40 02:40 03:17 Temp 98.8 97.7 98.8 97.7 Pulse 61 59 Resp 18 18 B/P 164/92 200/102 200/102 174/95 Pulse Ox 94 95 O2 Delivery Room Air Room Air 12/31/16 12/31/16 07:00 08:26 Temp 97.7 97.7 Pulse 59 59 Resp 18 B/P 174/95 174/95 Pulse Ox 95 O2 Delivery Room Air Intake and Output 12/30/16 12/30/16 12/31/16 15:00 23:00 07:00 Intake Total 120 ml 1810.72 ml Output Total 500 ml 2050 ml Balance -500 ml 120 ml -239.28 ml BETH HEMPHILL III DO Dec 31, 2016 09:48
[2016-12-31] MEDS ORDERED: AMLODIPINE BESYLATE 10 MG TABLET PO SCH (10:00)
[2016-12-31] MEDS: IV NORMAL SALINE 1000ML BAG 1,000 ML IV SCH (10:30)
[2016-12-31 11:00] VITALS: BP 164/96
[2016-12-31 11:12] VITALS: BP 168/75
[2016-12-31] MEDS ORDERED: ATORVASTATIN CALCIUM 40 MG TABLET. PO SCH (21:00)
[2016-12-31] MEDS ORDERED: traZODone 50 MG TABLET. PO SCH (21:00)
[2016-12-31] MEDS ORDERED: CITALOPRAM 20 MG TABLET. PO SCH (21:00)
[2017-01-01] MEDS ORDERED: LEVOTHYROXINE 50 MCG TABLET PO SCH (07:00)
== END 2016-12-31 15:45 | DRG 393 ==
LOC: ER 11:48 → EEVIPCON 11:48 → OBSVTOIN 14:41 → 4 NORTH 14:41 → ER 15:48 → 4 NORTH 16:18
PROVIDERS: ADMIT Internal Medicine; ATTEND Internal Medicine
DX: K55.9 Vascular disorder of intestine, unspecified (principal); N17.0 Acute kidney failure with tubular necrosis; A09 Infectious gastroenteritis and colitis, unspecified; E66.9 Obesity, unspecified; E86.0 Dehydration; E86.1 Hypovolemia; I10 Essential (primary) hypertension; I25.10 Atherosclerotic heart disease of native coronary artery without angina pectoris; I77.811 Abdominal aortic ectasia; I72.3 Aneurysm of iliac artery; I95.1 Orthostatic hypotension; K21.9 Gastro-esophageal reflux disease without esophagitis; K44.9 Diaphragmatic hernia without obstruction or gangrene; K80.20 Calculus of gallbladder without cholecystitis without obstruction; Z68.39 Body mass index [BMI] 39.0-39.9, adult; Z80.0 Family history of malignant neoplasm of digestive organs; Z95.5 Presence of coronary angioplasty implant and graft
CPT/HCPCS: 36415; 74176; 80048; 80076; 81001; 83605; 83690; 83880; 84484; 85027; 87641; 93005; 94250; 96360; 96361; J0360; J3490; J7030; J7040; 99285-25